=== PATIENT | male | born 1980 | race African-American/Black ===

== ENCOUNTER 2018-07-31 05:10 | Emergency (ER) | payer OTHER ==
[~2018-07-31] VITALS: Ht 157.5 cm; Wt 70.3 kg
--- NOTE | 2018-07-31 05:30 | NUR ---
Dr. Cotton at bedside for MSE.
[2018-07-31] MEDS ORDERED: DEXAMETHASONE SOD PHOSPHATE 10 MG INJ ONE (05:41)
[2018-07-31] MEDS ORDERED: ALBUTEROL SULFATE 2.5 MG/3 ML NEBU NEB ONE (05:45)
[2018-07-31] MEDS ORDERED: IPRATROPIUM BROMIDE 0.5 MG/2.5 ML NEBU NEB ONE (05:45)
[2018-07-31] MEDS ORDERED: DEXAMETHASONE SOD PHOSPHATE 4 MG INJ IM ONE (05:45)
--- NOTE | 2018-07-31 05:46 | NUR ---
Respiratory at bedside.
[2018-07-31] MEDS ORDERED: IPRATROPIUM BROMIDE 0.5 MG/2.5 ML NEBU ONE (05:47)
[2018-07-31] MEDS ORDERED: ALBUTEROL SULFATE 2.5 MG/ 0.5 ML NEBU ONE (05:47)
--- NOTE | 2018-07-31 06:06 | NUR ---
Xray at bedside.
--- NOTE | 2018-07-31 06:30 | NUR ---
Patient states he is feeling better. Md notified.
--- NOTE | 2018-07-31 06:37 | NUR ---
Patient discharged to home in stable conditon. Written and verbal after care instructions given. Patient verbalizes understanding of instructions. Patient ambulated out of ER with steady gait, no acute signs of distress, VSS, all belongings taken.
[2018-07-31 06:39] VITALS: BP 113/83
== END 2018-07-31 06:49 | disposition home or self-care (01) ==
LOC: ER 05:14
DX: J45.909 Unspecified asthma, uncomplicated (principal); Z88.0 Allergy status to penicillin
CPT/HCPCS: 71045; 94640; 96372; 99283; J1100; A4663; J3590